=== PATIENT | female | born 1945 | race American Indian/Alaskan Native ===

== ENCOUNTER 2017-10-04 23:25 | Emergency (ER) | payer MEDICARE ==
[2017-10-04] MEDS ORDERED: NACL 0.9% 1000 ML 1,000 ML IV ONE (23:42)
[2017-10-05 00:04] LABS: Basophils % (Auto) 0.3 % (0.0-1.8); Eosinophils # (Auto) 0.3 K/mm3 (0.0-0.4); Eosinophils % (Auto) 2.5 % (0.0-4.3); Hematocrit 35.7 % (30.3-42.9); Hemoglobin 12.5 gm/dl (10.1-14.3); Lymphocytes # (Auto) 1.9 K/mm3 (1.2-5.4); Lymphocytes % (Auto) 17.7 % (13.4-35.0); Mean Corpuscular HGB Conc 35 % (30-34); Mean Corpuscular Hemoglobin 29 pg (28-32); Mean Corpuscular Volume 83 fl (79-97); Monocytes # (Auto) 0.5 K/mm3 (0.0-0.8); Platelet Count 216 K/mm3 (140-440); Red Blood Count 4.33 M/mm3 (3.65-5.03); Red Cell Distribution Width 15.1 % (13.2-15.2)
[2017-10-05 00:23] LABS: Alanine Aminotransferase 19 units/L (7-56); Albumin 4.8 g/dL (3.9-5); BUN/Creatinine Ratio 22; Blood Urea Nitrogen 11 mg/dL (7-17); Calcium 9.7 mg/dL (8.4-10.2); Hemolysis Index 5; Lipase 24 units/L (13-60)
[2017-10-05] MEDS ORDERED: MORPHINE IV ONE ×2 (02:12→04:50)
[2017-10-05] MEDS ORDERED: ZOFRAN IV ONE (02:13)
[2017-10-05] MEDS ORDERED: PEPCID IV ONE (02:18)
--- NOTE | 2017-10-05 04:08 | Cat Scan Report ---
FINAL REPORT EXAM: CT ABDOMEN PELVIS W CON HISTORY: abdominal pain TECHNIQUE: Routine axial imaging was obtained of the abdomen and pelvis following the intravenous injection of 100 cc of Omnipaque 300. Delayed imaging was obtained through the kidneys ureters and bladder. Sagittal and coronal reconstructions were reviewed. FINDINGS: The lung bases reveal atelectatic changes in both lower lobes. Pleural fluid is not seen. There is a small hiatal hernia. The gallbladder has been removed. The liver appears normal. There is mild prominence of the common bile duct and intrahepatic ducts. Correlation with liver function tests recommended. The liver, spleen and adrenal glands appear normal. The kidneys reveal 17 mm cortical cyst medially in the right kidney. There is no evidence of hydronephrosis. The abdominal aorta is normal in caliber. The vascular structures enhance normally. The bowel loops are normal in caliber and course. There is no evidence of free fluid or adenopathy. The appendix is not seen. There is a supraumbilical ventral hernia which is small and contains omental fat. There is no evidence of free fluid or adenopathy. The bladder appears normal. The uterus is not seen. The skeletal structures reveal previous right hip replacement. There are arthritic changes involving the left hip joint along with multilevel disc degeneration in the lumbar spine. IMPRESSION: Cholecystectomy. No acute process in the abdomen and pelvis. Mild enlargement of the common bile duct and intrahepatic ducts. Correlation with liver function tests recommended. 17 mm cortical cyst in the right kidney. Mild atelectatic changes in both lung bases. Small ventral supraumbilical hernia containing omental fat. Hysterectomy. Previous right hip replacement. Arthritic changes involve left hip joint along with multilevel disc degeneration in the lumbar spine.
[2017-10-05 04:38] LABS: Bilirubin,Urine NEG (Negative); Blood,Urine NEG (Negative); Color,Urine Yellow (Yellow); Mucus,Urine FEW /HPF; Protein,Urine <15 mg/dL mg/dL (Negative)
--- NOTE | 2017-10-05 04:45 | Emergency Department Report ---
HPI - General Chief Complaint: Abdominal Pain Time Seen by Provider: 10/05/17 01:51 - HPI HPI: 72-year-old female presents to ED with periumbilical abdominal cramping, no nausea no vomiting. Symptoms started a few hours prior to presentation. Actually symptoms of been going on for about 4-6 hours. Patient denies any fever, chills, night sweats. Patient has not taking any medications for his symptoms. ED Past Medical Hx - Past Medical History Hx Hypertension: Yes Hx Heart Attack/AMI: Yes Hx of Cancer: Yes (Left Breast) Hx Asthma: Yes - Surgical History Additional Surgical History: Left Breast Mastectomy - Social History Smoking Status: Never Smoker Substance Use Type: None - Medications Home Medications: Home Medications Medication Instructions Recorded Confirmed Last Taken Type Ciprofloxacin [Ciprofloxacin ORAL 500 mg PO Q12H #14 ml 10/05/17 Unknown Rx LIQ] Dicyclomine [Bentyl] 20 mg PO QID PRN #30 tablet 10/05/17 Unknown Rx ED Review of Systems ROS: Stated complaint: LOWER STOMACH PAIN Other details as noted in HPI Comment: All other systems reviewed and negative Gastrointestinal: abdominal pain. denies: nausea, vomiting Physical Exam - Physical Exam Vital Signs: Vital Signs 10/04/17 10/05/17 10/05/17 23:36 01:42 01:46 Temperature 98.7 F Pulse Rate 68 67 61 Respiratory 18 16 14 Rate Blood Pressure 157/65 133/53 O2 Sat by Pulse 98 99 99 Oximetry 10/05/17 10/05/17 10/05/17 02:00 02:16 02:30 Temperature Pulse Rate 63 59 L 62 Respiratory 17 12 13 Rate Blood Pressure 144/61 144/61 133/58 O2 Sat by Pulse 100 Oximetry 10/05/17 10/05/17 10/05/17 02:36 02:46 03:00 Temperature 98.1 F Pulse Rate 72 66 Respiratory 15 21 Rate Blood Pressure 133/58 133/58 O2 Sat by Pulse Oximetry 10/05/17 10/05/17 10/05/17 03:16 04:12 04:16 Temperature Pulse Rate 64 71 70 Respiratory 20 20 20 Rate Blood Pressure 133/58 138/60 O2 Sat by Pulse Oximetry Physical Exam: Vital signs reviewed GENERAL: Alert, well developed, in no acute distress. MENTAL STATUS: Judgment and insight appropriate for age. Oriented to time, place and person. No recent loss of memory. Affect appropriate for age. EYES: Pupils are equal and reactive to light. No hemorrhages or exudates. Extraocular muscles intact. EAR, NOSE AND THROAT: Oropharynx clean, mucous membranes moist. Ears and nose without masses, lesions or deformities. Tympanic membranes clear bilaterally. Trachea midline. No lymph node swelling or tenderness. RESPIRATORY: Clear to auscultation and percussion. No wheezing, rales or rhonchi. CARDIOVASCULAR: Heart sounds normal. No thrills. Regular rate and rhythm, no murmurs, rubs or gallops. GASTROINTESTINAL: Abdomen soft, nondistended. No pulsatile mass, no flank tenderness or suprapubic tenderness. No hepatosplenomegaly. NEUROLOGIC: Cranial nerves II-XII grossly intact. No focal neurological deficits. Deep tendon reflexes +2 bilaterally. Babinski negative. Moves all extremities spontaneously. Sensation intact bilaterally. SKIN: No rashes or lesions. No petechia. No purpura. Good turgor. No edema. MUSCULOSKELETAL: No cyanosis or clubbing. No gross deformities. Capable of free range of motion without pain or crepitation. No laxity, instability or dislocation. BONE: No misalignment, asymmetry, defect, tenderness or effusion. Capable of from of joint above and below bone. MUSCLE: No crepitation, defect, tenderness, masses or swellings. No loss of muscle tone or strength. LYMPHATIC: Palpation of neck reveals no swelling or tenderness of neck nodes. Palpation of groin reveals no swelling or tenderness of groin nodes. ED Course Vital Signs 10/04/17 10/05/17 10/05/17 23:36 01:42 01:46 Temperature 98.7 F Pulse Rate 68 67 61 Respiratory 18 16 14 Rate Blood Pressure 157/65 133/53 O2 Sat by Pulse 98 99 99 Oximetry 10/05/17 10/05/17 10/05/17 02:00 02:16 02:30 Temperature Pulse Rate 63 59 L 62 Respiratory 17 12 13 Rate Blood Pressure 144/61 144/61 133/58 O2 Sat by Pulse 100 Oximetry 10/05/17 10/05/17 10/05/17 02:36 02:46 03:00 Temperature 98.1 F Pulse Rate 72 66 Respiratory 15 21 Rate Blood Pressure 133/58 133/58 O2 Sat by Pulse Oximetry 10/05/17 10/05/17 10/05/17 03:16 04:12 04:16 Temperature Pulse Rate 64 71 70 Respiratory 20 20 20 Rate Blood Pressure 133/58 138/60 O2 Sat by Pulse Oximetry - Reevaluation(s) Reevaluation #1: 10/05/17 04:45 Feels better ED Medical Decision Making - Lab Data Result diagrams: 10/04/17 23:47 10/04/17 23:47 - Differential Diagnosis colitis, aortic dissection Critical care attestation.: If time is entered above; I have spent that time in minutes in the direct care of this critically ill patient, excluding procedure time. ED Disposition Clinical Impression: Abdominal pain Qualifiers: Abdominal location: generalized Qualified Code(s): R10.84 - Generalized abdominal pain Acute cystitis Qualifiers: Hematuria presence: without hematuria Qualified Code(s): N30.00 - Acute cystitis without hematuria Disposition: - TO HOME OR SELFCARE Is pt being admited?: No Does the pt Need Aspirin: No Condition: Stable Instructions: Abdominal Pain (ED) Prescriptions: Ciprofloxacin [Ciprofloxacin ORAL LIQ] 500 mg PO Q12H #14 ml Dicyclomine [Bentyl] 20 mg PO QID PRN #30 tablet PRN Reason: Pain, Moderate (4-6) Referrals: FARAZ IDLLON MD [Primary Care Provider] - 3-5 Days
[2017-10-05 06:09] VITALS: BP 143/62
== END 2017-10-05 05:55 | disposition home or self-care (01) ==
LOC: ED 23:25
DX: N30.00 Acute cystitis without hematuria (principal); I10 Essential (primary) hypertension; I25.2 Old myocardial infarction; J45.909 Unspecified asthma, uncomplicated; Z88.8 Allergy status to other drugs, medicaments and biological substances
CPT/HCPCS: 36415; 74177; 80053; 81001; 83690; 84484; 85025; 93005; 93010; 96374; 96375; 96376; 99284; J2270; J2405; J7030; Q9967